=== PATIENT | female | born 1985 | race Caucasian/White ===

== ENCOUNTER 2017-08-02 21:54 | Inpatient (IN) | payer OTHER ==
[2017-08-02 22:12] VITALS: BMI 25.8
--- NOTE | 2017-08-02 22:35 | HP ---
COWS - Scale Resting Pulse: 0= [place] 80 or Below Sweatin=Flushed/Facial Moisture Restless Observation: 1= Difficult to Sit Still Pupil Size: 1= Pupils >than Normal Bone or Joint Aches: 2= Severe Diffuse Aches Runny Nose/ Eye Tearin= Runny Nose/Eyes GI Upset > 30mins: 5=Frequent Vomit/Diarrhea (diarrhea x 5, denies vomiting) Tremor Observation: 2= Slight Tremor Visible Yawning Observation: 1= 1-2x During Session Anxiety or Irritability: 2=Irritable/Anxious Goose Flesh Skin: 0=Smooth Skin COWS Score: 18 CIWA Score - CIWA Score Nausea/Vomitin-No Nausea/No Vomiting Muscle Tremors: 4-Moderate,w/Arms Extend Anxiety: 4-Mod. Anxious/Guarded Agitation: 3 Paroxysmal Sweats: 3 Orientation: 0-Oriented Tacttile Disturbances: 0-None Auditory Disturbances: 0-None Visual Disturbances: 0-None Headache: 3-Moderate CIWA-Ar Total Score: 17 Admission ROS S - HPI Chief Complaint: Alcohol and heroin withdrawal symptoms Allergies/Adverse Reactions: Allergies Allergy/AdvReac Type Severity Reaction Status Date / Time No Known Allergies Allergy Verified 08/02/17 22:20 History of Present Illness: 31 years old female with a long history of alcohol, heroin and marijuana dependence is admitted to detox. Patient denies previous detox and insignificant period of sobriety. Patient has medical history of HPV, anxiety disorder and depression. She reports inflammation, redness and hives to right hand and left thigh from bed bug bites. She was sent from [facility] where she presented with complaint of suicidal thoughts. Patient denies suicidal ideation at this time but states that she feels very anxious and depressed. Patient states ''My goal is to get sober and find a way to manage my anxiety without illicit drugs." Exam Limitations: No Limitations - Ebola screening Have you traveled outside of the country in the last 21 days: No (N) Have you had contact with anyone from an Ebola affected area: No Have you been sick,other than usual withdrawal symptoms: No Do you have a fever: No - Review of Systems Constitutional: Chills, Diaphoresis, Loss of Appetite, Malaise, Night Sweats, Changes in sleep EENT: reports: Other (use prescription glasses) Respiratory: reports: No Symptoms reported Cardiac: reports: No Symptoms Reported GI: reports: Diarrhea ( x 5), Poor Appetite, Poor Fluid Intake : reports: No Symptoms Reported Musculoskeletal: reports: No Symptoms Reported Integumentary: reports: Dryness, Erythema (left arm, right thigh), Flushing Neuro: reports: Headache, Tingling, Tremors Endocrine: reports: Flushing Hematology: reports: Easy Bruising Psychiatric: reports: Orientated x3, Agitated, Anxious, Depressed Other Systems: Reviewed and Negative Patient History - Patient Medical History Hx Anemia: No Hx Asthma: No Hx Chronic Obstructive Pulmonary Disease (COPD): No Hx Cancer: No Hx Cardiac Disorders: No Hx Congestive Heart Failure: No Hx Hypertension: No Hx Hypercholesterolemia: No HX Cerebrovascular Accident: No Hx Seizures: No Hx Diabetes: No Hx Gastrointestinal Disorders: No Hx Liver Disease: No Hx Genitourinary Disorders: No Hx Sexually Transmitted Disorders: Yes (HPV) Hx Renal Disease (ESRD): No Hx Thyroid Disease: No Hx Human Immunodeficiency Virus (HIV): No (Negative 2015) Hx Hepatitis C: No (Negative 2016) Hx Depression: Yes Hx Suicide Attempt: No (Denies suicidal ideation at this time) Hx Bipolar Disorder: No Hx Schizophrenia: No Other Medical History: Bed bug bites - Patient Surgical History Past Surgical History: Yes Hx Neurologic Surgery: No Hx Cataract Extraction: No Hx Cardiac Surgery: No Hx Lung Surgery: No Hx Breast Surgery: No Hx Breast Biopsy: No Hx Abdominal Surgery: Yes (Gastric sleeve) Hx Appendectomy: No Hx Cholecystectomy: No Hx Genitourinary Surgery: No Hx Section: No Hx Orthopedic Surgery: Yes (Left femur surgery) Hx Hysterectomy: No Other Surgical History: Gallbladder removal Anesthesia Reaction: No - PPD History Previous Implant?: No PPD to be Administered?: Yes - Reproductive History Patient is a Female of Child Bearing Age (11 -55 yrs old): Yes LMP comment: On control Patient : No - Smoking Cessation Smoking history: Current every day smoker Have you smoked in the past 12 months: Yes Aproximately how many cigarettes per day: 10 Hx Chewing Tobacco Use: No Initiated information on smoking cessation: Yes 'Breaking Loose' booklet given: 08/02/17 - Substance & Tx. History Hx Alcohol Use: Yes (Beer) Hx Substance Use: Yes (Heroin, Marijuana, Cocaine) Substance Use Type: Alcohol, Cocaine, Heroin, Marijuana Hx Substance Use Treatment: No (Denies) - Substances Abused Alcohol Route: Oral Frequency: Daily Amount used: BEER- 1 SIX PACK- 24oz Age of first use: 16 Date of Last Use: 08/02/17 Heroin Route: Inhalation Frequency: Daily Amount used: 5 bags Age of first use: 25 Date of Last Use: 07/30/17 Cocaine Route: Inhalation Frequency: 3-6 times per week Amount used: 1 gram Age of first use: 18 Date of Last Use: 07/30/17 Marijuana/Hashish Route: Inhalation Frequency: Daily Amount used: 1 gram Age of first use: 16 Date of Last Use: 08/02/17 Family Disease History - Family Disease History Family Disease History: Other: Father (Cirrhosis of liver, alcoholism- ) Admission Physical Exam [facility] - Vital Signs Vital Signs: Vital Signs - 24 hr 08/02/17 22:09 Temperature 98.1 F Pulse Rate 79 Respiratory 18 Rate Blood Pressure 115/76 - Physical General Appearance: Yes: Moderate Distress, Tremorous, Irritable, Sweating, Anxious HEENTM: Yes: EOMI, DANY Respiratory: Yes: Lungs Clear, Normal Breath Sounds, No Respiratory Distress Neck: Yes: Supple Breast: Yes: Breast Exam Deferred Cardiology: Yes: Regular Rhythm, Regular Rate, S1, S2 Abdominal: Yes: Normal Bowel Sounds, Soft Genitourinary: Yes: Within Normal Limits Back: Yes: Other (tatoo (2) to the back) Musculoskeletal: Yes: Within Normal Limits Extremities: Yes: Tremors, Erythema (right hand and left thigh) Integumentary: Yes: Dry, Hives, Other (tatoo to bilateral hand and leg) Lymphatic: Yes: Within Normal Limits - Diagnostic (1) Alcohol dependence with uncomplicated withdrawal Current Visit: Yes Status: Acute (2) Nicotine dependence Current Visit: Yes Status: Acute Qualifiers: Nicotine product type: cigarettes (3) Cocaine dependence, uncomplicated Current Visit: Yes Status: Acute (4) Cannabis dependence, uncomplicated Current Visit: Yes Status: Acute Cleared for Admission [facility] - Detox or Rehab [facility] Level of Care: Medically Managed Detox Regimen/Protocol: Methadone/Librium [facility] Breath Alcohol Content Breath Alcohol Content: 0 Urine Pregancy Test - Result Urine Test Results: Negative- NO Line Present Urine Drug Screen - Results Drug Screen Negative: No Urine Drug Screen Results: THC-Marijuana, TCA-Tricyclic Antidepress
[2017-08-02] MEDS ORDERED: MAG HYDROX/AL HYDROX/SIMETH 30 ML UNIT-DOSE CUP PO PRN (23:27)
[2017-08-02] MEDS ORDERED: MAGNESIUM HYDROX 2400MG/30ML ORAL SUSPENSION 30 ML CUP PO PRN (23:27)
[2017-08-02] MEDS ORDERED: ACETAMINOPHEN 325 MG TABLET (FP) PO PRN (23:27)
[2017-08-02] MEDS ORDERED: MENTHOL/PHENOL 1 EACH UD MM PRN (23:27)
[2017-08-02] MEDS ORDERED: LOPERAMIDE HCL 2 MG CAPSULE PO PRN (23:27)
[2017-08-02] MEDS ORDERED: IBUPROFEN 400 MG TABLET (FP) PO PRN (23:27)
[2017-08-02] MEDS ORDERED: MAGNESIUM CITRATE 300 ML BOTTLE PO PRN (23:27)
[2017-08-02] MEDS ORDERED: guaiFENesin/D-METHORPHAN HB 10 ML UNIT-DOSE CUPS PO PRN (23:27)
[2017-08-02] MEDS ORDERED: P-EPHED 60MG/TRIPROLIDI 2.5MG TABLET PO PRN (23:27)
[2017-08-02] MEDS: chlordiazePOXIDE HCL 25 MG CAPSULE PO SCH (23:56)
[2017-08-03] MEDS ORDERED: diphenhydrAMINE HCL 25 MG CAPSULE (FP) PO ONE ×2 (00:04→09:39)
[2017-08-03] MEDS ORDERED: HYDROCORTISONE 1% TOPICAL CREAM 30 GM TUBE TP PRN (00:06)
[2017-08-03] MEDS: hydrOXYzine PAMOATE 50 MG CAPSULE (FP) PO PRN ×2 (01:38→17:07)
[2017-08-03] MEDS: chlordiazePOXIDE HCL 25 MG CAPSULE PO SCH ×4 (05:11→22:48)
[2017-08-03] MEDS ORDERED: COLLOIDAL OATMEAL 1 BAR EACH TP PRN (09:25)
[2017-08-03 09:56] LABS: MCH 31.8 pg (25.7-33.7); MCHC 33.4 g/dl (32.0-36.0); MEAN CELL VOLUME 95.1 fl (80-96); MEAN PLT VOLUME 7.2 fl (7.5-11.1); PLATELET COUNT 406 K/MM3 (134-434); RDW 13.1 % (11.6-15.6); WHITE BLOOD COUNT 7.2 K/mm3 (4.0-10.0)
--- NOTE | 2017-08-03 10:25 | PN ---
[facility] CIWA - CIWA Score Nausea/Vomitin-Mild Nausea/No Vomiting Muscle Tremors: 4-Moderate,w/Arms Extend Anxiety: 3 Agitation: 3 Paroxysmal Sweats: 3 Orientation: 0-Oriented Tacttile Disturbances: 0-None Auditory Disturbances: 0-None Visual Disturbances: 0-None Headache: 1-Very Mild CIWA-Ar Total Score: 15 BHS COWS - Scale Resting Pulse: 1= [place] 81-100 Sweatin=Flushed/Facial Moisture Restless Observation: 1= Difficult to Sit Still Pupil Size: 0= Normal to Room Light Bone or Joint Aches: 2= Severe Diffuse Aches Runny Nose/ Eye Tearin= Runny Nose/Eyes GI Upset > 30mins: 0= None Tremor Observation of Outstretched Hands: 2= Slight Tremor Visible Yawning Observation: 2= >3x During Session Anxiety or Irritability: 2=Irritable/Anxious Goose Flesh Skin: 3=Piloerection COWS Score: 17 S Progress Note (SOAP) Subjective: shakes sweats interrupted sleep skin rash itch agitation chills Objective: 08/03/17 10:29 Vital Signs Temperature 98.2 F 08/03/17 10:23 Pulse Rate 94 H 08/03/17 10:23 Respiratory Rate 20 08/03/17 10:23 Blood Pressure 120/76 08/03/17 10:23 O2 Sat by Pulse Oximetry (%) Laboratory Tests 08/03/17 07:00 WBC 7.2 RBC 3.95 Hgb 12.6 Hct 37.6 MCV 95.1 MCH 31.8 MCHC 33.4 RDW 13.1 Plt Count 406 MPV 7.2 L rest of labs pending aaox3 ambulating no acute distress skin rash erupted noted to left arm and right leg; they appear as skin mosquito bites with a reaction. Assessment: 08/03/17 10:32 withdrawal sx Plan: continue detox increase fluids lidex cream qid benadryl 50mg x one aveeno soap
[2017-08-03 10:27] LABS: URINE APPEARANCE CLOUDY; URINE BILIRUBIN NEGATIVE (NEGATIVE); URINE BLOOD 2+ (NEGATIVE); URINE COLOR YELLOW; URINE GLUCOSE (UA) NEGATIVE (NEGATIVE); URINE KETONE NEGATIVE (NEGATIVE); URINE NITRITE NEGATIVE (NEGATIVE); URINE PROTEIN NEGATIVE (NEGATIVE); URINE UROBILINOGEN NEGATIVE mg/dL (0.2-1.0)
[2017-08-03] MEDS: FLUOCINONIDE 0.05% CREAM (15 GM TUBE) TP SCH ×5 (10:33→22:48)
[2017-08-03] MEDS: NICOTINE 14 MG/24 HOURS TOPICAL PATCH TD SCH (10:33)
[2017-08-03] MEDS: IBUPROFEN 600 MG TABLET (FP) PO PRN ×2 (10:35→22:48)
[2017-08-03] MEDS: PRENATAL VITAMINS W/ FOLIC ACID TABLET (FP) PO SCH (10:35)
[2017-08-03 10:39] LABS: ALBUMIN 3.3 g/dl (3.4-5.0); ALK PHOS 59 U/L (45-117); ANION GAP 8 (8-16); BILIRUBIN,TOTAL 0.8 mg/dL (0.2-1.0); CALCIUM 8.4 mg/dL (8.5-10.1); CO2 28 mmol/L (21-32); CREATININE 0.8 mg/dL (0.55-1.02); GLUCOSE,RANDOM 86 mg/dL (74-106); SGOT/AST 17 U/L (15-37); SGPT/ALT 23 U/L (12-78)
[2017-08-03 11:15] LABS: URINE BACTERIA MANY /hpf (NONE SEEN); URINE MUCUS FEW; URINE RBC 3; URINE WBC 50
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
[2017-08-03] MEDS: chlordiazePOXIDE HCL 25 MG CAPSULE PO PRN (13:24)
[2017-08-03] MEDS: NICOTINE POLACRILEX 2 MG GUM BC PRN ×3 (13:39→20:26)
[2017-08-03] MEDS ORDERED: diphenhydrAMINE HCL 25 MG CAPSULE (FP) PO PRN (15:13)
[2017-08-03] MEDS: DULoxetine HCL 60 MG CAPSULE.DR PO SCH (15:16)
[2017-08-03] MEDS ORDERED: ZOLPIDEM TARTRATE 5 MG TABLET PO PRN (17:12)
[2017-08-03 17:27] LABS: URINE LEUK ESTERASE TRACE (NEGATIVE)
[2017-08-03] MEDS: ZOLPIDEM TARTRATE 10 MG TABLET (PARK CARE ONLY) PO PRN (22:48)
[2017-08-03] MEDS: THIAMINE HCL 100 MG TABLET (FP) PO SCH (22:48)
[2017-08-04] MEDS: hydrOXYzine PAMOATE 50 MG CAPSULE (FP) PO PRN ×3 (04:14→20:00)
[2017-08-04] MEDS: chlordiazePOXIDE HCL 25 MG CAPSULE PO SCH ×3 (05:49→17:09)
[2017-08-04] MEDS: chlordiazePOXIDE HCL 25 MG CAPSULE PO PRN ×3 (07:35→20:01)
[2017-08-04] MEDS: IBUPROFEN 600 MG TABLET (FP) PO PRN ×3 (07:35→22:29)
[2017-08-04] MEDS: NICOTINE POLACRILEX 2 MG GUM BC PRN ×3 (07:36→14:36)
[2017-08-04] MEDS: DULoxetine HCL 60 MG CAPSULE.DR PO SCH (10:09)
[2017-08-04] MEDS: PRENATAL VITAMINS W/ FOLIC ACID TABLET (FP) PO SCH (10:09)
[2017-08-04] MEDS: FLUOCINONIDE 0.05% CREAM (15 GM TUBE) TP SCH ×5 (10:10→22:30)
[2017-08-04] MEDS: NICOTINE 14 MG/24 HOURS TOPICAL PATCH TD SCH (10:12)
--- NOTE | 2017-08-04 11:39 | PN ---
[facility] CIWA - CIWA Score Nausea/Vomitin-No Nausea/No Vomiting Muscle Tremors: 4-Moderate,w/Arms Extend Anxiety: 3 Agitation: 3 Paroxysmal Sweats: 3 Orientation: 0-Oriented Tacttile Disturbances: 0-None Auditory Disturbances: 0-None Visual Disturbances: 0-None Headache: 1-Very Mild CIWA-Ar Total Score: 14 BHS COWS - Scale Resting Pulse: 1= [place] 81-100 Sweatin=Flushed/Facial Moisture Restless Observation: 1= Difficult to Sit Still Pupil Size: 0= Normal to Room Light Bone or Joint Aches: 1= Mild Discomfort Runny Nose/ Eye Tearin= Nasal Congestion GI Upset > 30mins: 2= Nausea/Diarrhea Tremor Observation of Outstretched Hands: 2= Slight Tremor Visible Yawning Observation: 2= >3x During Session Anxiety or Irritability: 2=Irritable/Anxious Goose Flesh Skin: 0=Smooth Skin COWS Score: 14 S Progress Note (SOAP) Subjective: sweats mild shakes interrupted sleep agitation my rash is feeling better, less itching Objective: 08/04/17 11:38 Vital Signs Temperature 97.9 F 08/04/17 10:00 Pulse Rate 84 08/04/17 10:00 Respiratory Rate 18 08/04/17 10:00 Blood Pressure 118/75 08/04/17 10:00 O2 Sat by Pulse Oximetry (%) Laboratory Tests 08/03/17 08/03/17 08/03/17 07:00 07:00 07:00 WBC 7.2 RBC 3.95 Hgb 12.6 Hct 37.6 MCV 95.1 MCH 31.8 MCHC 33.4 RDW 13.1 Plt Count 406 MPV 7.2 L Sodium 138 Potassium 4.2 Chloride 102 Carbon Dioxide 28 Anion Gap 8 BUN 14 Creatinine 0.8 Creat Clearance w eGFR > 60 Random Glucose 86 Calcium 8.4 L Total Bilirubin 0.8 AST 17 ALT 23 Alkaline Phosphatase 59 Total Protein 7.0 Albumin 3.3 L Urine Color Urine Appearance Urine pH Ur Specific [place] Urine Protein Urine Glucose (UA) Urine Ketones Urine Blood Urine Nitrite Urine Bilirubin Urine Urobilinogen Ur Leukocyte Esterase Urine WBC (Auto) Urine RBC (Auto) Urine RBC Ur Epithelial Cells Urine Bacteria Urine Mucus RPR Titer Nonreactive 08/03/17 07:00 WBC RBC Hgb Hct MCV MCH MCHC RDW Plt Count MPV Sodium Potassium Chloride Carbon Dioxide Anion Gap BUN Creatinine Creat Clearance w eGFR Random Glucose Calcium Total Bilirubin AST ALT Alkaline Phosphatase Total Protein Albumin Urine Color Yellow Urine Appearance Cloudy Urine pH 5.0 Ur Specific [place] 1.024 Urine Protein Negative Urine Glucose (UA) Negative Urine Ketones Negative Urine Blood 2+ H Urine Nitrite Negative Urine Bilirubin Negative Urine Urobilinogen Negative Ur Leukocyte Esterase Trace H Urine WBC (Auto) 50 Urine RBC (Auto) 3 Urine RBC No Result Required. Ur Epithelial Cells Rare Urine Bacteria Many Urine Mucus Few RPR Titer aaox3 ambulating no acute distress Assessment: 08/04/17 11:41 withdrawal sx Plan: continue detox increase fluids
--- NOTE | 2017-08-04 12:13 | EKG ---
Test Reason : Blood Pressure : / mmHG Vent. Rate : 066 BPM Atrial Rate : 066 BPM P-R Int : 126 ms QRS Dur : 090 ms QT Int : 404 ms P-R-T Axes : 035 049 047 degrees QTc Int : 423 ms NORMAL SINUS RHYTHM NORMAL ECG NO PREVIOUS ECGS AVAILABLE Confirmed by NADYA ENRIQUEZ MD ([id number]) on 08/04/2017 12:13:04 PM Referred By: Confirmed By:NADYA ENRIQUEZ MD
--- NOTE | 2017-08-04 16:33 | PN ---
Psychiatric Progress Note Vital Signs: Vital Signs Period Temp Pulse Resp BP Sys/Enriquez Pulse Ox Last 24 Hr 97.5 F-99.3 F 62-90 16-18 111-121/67-77 Date of Session: 08/04/17 Chief Complaint:: " I feel anxious.I want to see the psychiatrist." HPI: Day 3 of detoxification treatment.Fine hospital course.Patient requested another session with psychiatrist because of recurrent anxiety. ROS: Unremarkable.Patient is ambulatory,cognitively intact and visible oin the unit.No evidence of distress. Current Medications: Active Medications Generic Name Dose Route Start Last Admin Trade Name Freq PRN Reason Stop Dose Admin Acetaminophen 650 mg 08/02/17 23:27 Tylenol - PO Q4H PRN FEVER OR PAIN Al Hydroxide/Mg Hydroxide 30 ml 08/02/17 23:27 Mylanta Oral Suspension - PO Q6H PRN DYSPEPSIA Chlordiazepoxide HCl 25 mg 08/03/17 23:00 08/04/17 10:09 Librium - PO 08/04/17 17:01 25 mg [id number] SILVIA Administration Chlordiazepoxide HCl 15 mg 08/04/17 23:00 Librium - PO 08/05/17 17:01 [id number] SILVIA Chlordiazepoxide HCl 25 mg 08/02/17 23:27 08/04/17 15:21 Librium - PO 08/05/17 23:26 25 mg Q4H PRN Administration WITHDRAWAL(CONT SUBST) Chlordiazepoxide HCl 10 mg 08/05/17 23:00 Librium - PO 08/06/17 17:01 [id number] SILVIA Colloidal Oatmeal 1 applic 08/03/17 09:25 08/03/17 09:45 Aveeno Soap - TP 1 applic DAILY PRN Administration HYGEINE Diphenhydramine HCl 25 mg 08/03/17 15:13 08/03/17 15:35 Benadryl - PO 25 mg Q6H PRN Administration FOR ITCHING Duloxetine HCl 60 mg 08/03/17 13:55 08/04/17 10:09 Cymbalta - PO 60 mg DAILY SILVIA Administration Eucalyptus/Menthol/Phenol/Sorbitol 1 each 08/02/17 23:27 Cepastat Lozenge - MM Q4H PRN SORE THROAT Fluocinonide 1 applic 08/03/17 09:30 08/04/17 15:16 Lidex 0.05% Cream - TP 1 applic QID SILVIA Administration Guaifenesin 10 ml 08/02/17 23:27 Robitussin Dm - PO Q6H PRN COUGH Hydroxyzine Pamoate 50 mg 08/02/17 23:27 08/04/17 14:36 Vistaril - PO 50 mg Q4H PRN Administration AGITATION Ibuprofen 600 mg 08/03/17 10:10 08/04/17 15:02 Motrin - PO 600 mg Q6H PRN Administration SEVERE PAIN Loperamide HCl 4 mg 08/02/17 23:27 Imodium - PO Q6H PRN DIARRHEA Magnesium Citrate 300 ml 08/02/17 23:27 Citroma - PO Q48H PRN CONSTIPATION Magnesium Hydroxide 30 ml 08/02/17 23:27 Milk Of Magnesia - PO DAILY PRN CONSTIPATION Nicotine 14 mg 08/03/17 10:00 08/04/17 10:12 Nicoderm Patch - TD 14 mg DAILY SILVIA Administration Nicotine Polacrilex 2 mg 08/02/17 23:27 08/04/17 14:36 Nicorette Gum - BC 2 mg Q2H PRN Administration NICOTINE REPLACEMENT RX Multivit/Folic Acid/Iron 1 tab 08/03/17 10:00 08/04/17 10:09 Vitamins (Sjr) - PO 1 tab DAILY SILVIA Administration Pseudoephedrine/Triprolidine 1 combo 08/02/17 23:27 Actifed - PO TID PRN NASAL CONGESTION Thiamine HCl 100 mg 08/03/17 22:00 08/03/17 22:48 Vitamin B1 - PO 100 mg HS SILVIA Administration Zolpidem Tartrate 10 mg 08/03/17 22:00 08/03/17 22:48 Ambien - PO 08/06/17 21:59 10 mg HS PRN Administration INSOMNIA Medication(s) Change(s): No clinical justification for change of medications.Patient needs firm redirections and reassurance.Ms Johnson reported to this sports book writer that she sought another meeting with psychiatrist because " other girls on the unit told me about the number of medications that they are getting,like seroquel,ambien and other things; so I wonder why I should not get the same for my anxiety."Patient is currently on librium detox protocol.She is pressuring staff for switch to another benzodiazepine.Appropriate medical information is provided to the patient and strict limits set.Session was witnessed by CHENCHO [place]. Current Side Effect: No Lab tests ordered: No Lab tests reviewed: Yes Provider note:: Met with patient in the presence of nurse Sandi.Patient is allowed space to ventilate her feelings and express frustration.NO clinical evidence of panic attacks.Ms Johnson is clearly engaged in the quest for additional medications (preferably benzodiazepines) through manipulative and infantile channels.Medications reviewed with patient.She is informed that her current condtion DOES NOT warrant any modification of the regimen.She is also encouraged to focus on her own issues and to ignore rumors/innuendos from peers.Patient appears to be receptive to teachings.Calmed down.Stable mental status. Total face to face time:: 25 Mental Status Exam - Mental Status Exam Alert and Oriented to: Time, Place, Person Cognitive Function: Good Patient Appearance: Well Groomed Mood: Nervous Affect: Labile Patient Behavior: Appropriate (during interview), Cooperative Speech Pattern: Clear, Appropriate Voice Loudness: Normal Thought Process: Intact, Goal Oriented Thought Disorder: Not Present Hallucinations: Denies Suicidal Ideation: Denies Homicidal Ideation: Denies Insight/Judgement: Poor Sleep: Fair Appetite: Good Muscle strength/Tone: Normal Gait/Station: Normal Psychiatric Treatment Plan - Problem List (1) Alcohol dependence with uncomplicated withdrawal Current Visit: Yes (2) Cannabis dependence, uncomplicated Current Visit: Yes (3) Cocaine dependence, uncomplicated Current Visit: Yes (4) Nicotine dependence Current Visit: Yes Qualifiers: Nicotine product type: cigarettes Substance use status: uncomplicated Qualified Code(s): F17.210 - Nicotine dependence, cigarettes, uncomplicated (5) Substance induced mood disorder Current Visit: Yes (6) Depressive disorder Current Visit: Yes Comment: Self-report.On medications.Sees a private psychiatrist in the community. (7) Personality disorder, unspecified Current Visit: Yes Comment: Suspected.
[2017-08-04] MEDS: ZOLPIDEM TARTRATE 10 MG TABLET (PARK CARE ONLY) PO PRN (22:29)
[2017-08-04] MEDS: THIAMINE HCL 100 MG TABLET (FP) PO SCH (22:29)
[2017-08-04] MEDS: chlordiazePOXIDE 5 MG CAPSULE PO SCH (22:31)
[2017-08-05] MEDS: chlordiazePOXIDE HCL 25 MG CAPSULE PO PRN ×3 (02:48→14:34)
[2017-08-05] MEDS: chlordiazePOXIDE 5 MG CAPSULE PO SCH ×2 (05:47→10:41)
[2017-08-05] MEDS: IBUPROFEN 600 MG TABLET (FP) PO PRN (05:48)
[2017-08-05] MEDS: hydrOXYzine PAMOATE 50 MG CAPSULE (FP) PO PRN (07:27)
[2017-08-05] MEDS: DULoxetine HCL 60 MG CAPSULE.DR PO SCH (10:41)
[2017-08-05] MEDS: PRENATAL VITAMINS W/ FOLIC ACID TABLET (FP) PO SCH (10:41)
[2017-08-05] MEDS: NICOTINE 14 MG/24 HOURS TOPICAL PATCH TD SCH (10:42)
[2017-08-05] MEDS: FLUOCINONIDE 0.05% CREAM (15 GM TUBE) TP SCH ×2 (10:43→14:36)
--- NOTE | 2017-08-05 11:24 | DS ---
[facility] Detox Discharge Summary Admission Date: 08/02/17 Discharge Date: 08/05/17 - History Present History: Alcohol Dependence, Cannabis Dependence, Cocaine Dependence Additional Comments: FOLLOW UP WITH [facility] Pertinent Past History: NICOTINE DEPENDENCE PERSONALITY DISORDER SUBSTANCE INDUED MOOD DISORDER DEPRESSIVE DISORDER - Physical Exam Results Vital Signs: Vital Signs Temperature 98.4 F 08/05/17 10:47 Pulse Rate 75 08/05/17 10:47 Respiratory Rate 16 08/05/17 10:47 Blood Pressure 129/81 08/05/17 10:47 O2 Sat by Pulse Oximetry (%) - Treatment Hospital Course: Detox Protocol Followed, Detoxed Safely, Responded well, Discharged Condition Good, Rehab Referral Accepted Patient has Accepted a Rehab Referral to: [facility] - Medication Discharge Medications: Ambulatory Orders Clonazepam [Klonopin -] 1.5 mg PO DAILY 08/02/17 Duloxetine HCl [Cymbalta -] 90 mg PO DAILY 08/02/17 - Diagnosis (1) Alcohol dependence with uncomplicated withdrawal Current Visit: Yes Status: Chronic (2) Personality disorder, unspecified Current Visit: Yes Status: Acute (3) Substance induced mood disorder Current Visit: Yes Status: Acute (4) Cannabis dependence, uncomplicated Current Visit: Yes Status: Chronic (5) Cocaine dependence, uncomplicated Current Visit: Yes Status: Chronic (6) Depressive disorder Current Visit: Yes Status: Chronic (7) Nicotine dependence Current Visit: Yes Status: Chronic Qualifiers: Nicotine product type: cigarettes Substance use status: uncomplicated Qualified Code(s): F17.210 - Nicotine dependence, cigarettes, uncomplicated - AMA Did Patient Leave Against Medical Advice: No
--- NOTE | 2017-08-05 11:25 | PN ---
S Progress Note Note: PATIENT IS STABLE TO BE DISCHARGED TO [facility] TODAY
[2017-08-05 13:50] VITALS: BP 110/65; PULSE 74; TEMP 98.1
[2017-08-05] MEDS ORDERED: chlordiazePOXIDE HCL 10 MG CAPSULE PO SCH (23:00)
== END 2017-08-05 14:37 | disposition other institution (70) | DRG 774 ==
LOC: YASAS 21:54 → Y6N 22:42
PROVIDERS: ADMIT Internal Medicine; ATTEND Internal Medicine
PROC: HZ2ZZZZ Detoxification Services for Substance Abuse Treatment (ICD-10-PCS; principal; 2017-08-02)
DX: F10.230 Alcohol dependence with withdrawal, uncomplicated (principal); F14.20 Cocaine dependence, uncomplicated; F12.20 Cannabis dependence, uncomplicated; F17.210 Nicotine dependence, cigarettes, uncomplicated; F19.24 Other psychoactive substance dependence with psychoactive substance-induced mood disorder; F60.9 Personality disorder, unspecified; F32.9 Major depressive disorder, single episode, unspecified; Z87.42 Personal history of other diseases of the female genital tract
CPT/HCPCS: 36415; 80053; 81003; 81015; 85027; 86593; 93005; 93010

== ENCOUNTER 2017-08-05 14:24 | Inpatient (IN) | payer OTHER ==
[2017-08-05] MEDS ORDERED: MAGNESIUM CITRATE 300 ML BOTTLE PO PRN (15:51)
[2017-08-05] MEDS ORDERED: MAGNESIUM HYDROX 2400MG/30ML ORAL SUSPENSION 30 ML CUP PO PRN (15:51)
[2017-08-05] MEDS ORDERED: P-EPHED 60MG/TRIPROLIDI 2.5MG TABLET PO PRN (15:51)
[2017-08-05] MEDS ORDERED: LOPERAMIDE HCL 2 MG CAPSULE PO PRN (15:51)
[2017-08-05] MEDS ORDERED: MENTHOL/PHENOL 1 EACH UD MM PRN (15:51)
[2017-08-05] MEDS ORDERED: guaiFENesin/D-METHORPHAN HB 10 ML UNIT-DOSE CUPS PO PRN (15:51)
[2017-08-05] MEDS ORDERED: MAG HYDROX/AL HYDROX/SIMETH 30 ML UNIT-DOSE CUP PO PRN (15:51)
[2017-08-05] MEDS ORDERED: COLLOIDAL OATMEAL 1 BAR EACH TP PRN (15:52)
--- NOTE | 2017-08-05 15:53 | HP ---
[facility] Rehab Assess/Revision - Admission History Admitted to Rehab from: [facility] Date of Admission to Rehab: 08/05/17 - Vital signs Vital Signs: Vital Signs Period Temp Pulse Resp BP Sys/Enriquez Pulse Ox Last 24 Hr 98.3 F 87 18 118/75 - Findings Detox History & Physical reviewed: Yes Concur with findings: Yes Inpatient Rehab Admission - Initial Determination Are CD services needed?: Yes Free of communicable disease: Yes Not in need of hospitalization: Yes - Rehab Admission Criteria Lacks judgement: Yes Patient is meeting Inpatient Rehab admission criteria:: Yes
[2017-08-05] MEDS: NICOTINE 14 MG/24 HOURS TOPICAL PATCH TD SCH (17:17)
[2017-08-05] MEDS: FLUOCINONIDE 0.05% TOP OINT (60 GM TUBE) TP SCH ×2 (17:18→22:12)
[2017-08-05] MEDS: hydrOXYzine PAMOATE 50 MG CAPSULE (FP) PO PRN ×2 (17:19→22:14)
[2017-08-05] MEDS: THIAMINE HCL 100 MG TABLET (FP) PO SCH (22:11)
[2017-08-05] MEDS: SUVOREXANT 10 MG TABLET PO SCH (22:12)
[2017-08-06] MEDS: hydrOXYzine PAMOATE 50 MG CAPSULE (FP) PO PRN ×5 (02:20→22:04)
[2017-08-06] MEDS: ACETAMINOPHEN 325 MG TABLET (FP) PO PRN (02:20)
[2017-08-06] MEDS: IBUPROFEN 400 MG TABLET (FP) PO PRN (07:04)
[2017-08-06] MEDS ORDERED: DULoxetine HCL 60 MG CAPSULE.DR PO SCH (10:00)
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
[2017-08-06 10:22] LABS: HIV 1 & 2 AB NEGATIVE; HIV 1 AGp24 NEGATIVE
[2017-08-06] MEDS: PRENATAL VITAMINS W/ FOLIC ACID TABLET (FP) PO SCH (10:58)
[2017-08-06] MEDS: NICOTINE 14 MG/24 HOURS TOPICAL PATCH TD SCH (11:04)
[2017-08-06] MEDS: FLUOCINONIDE 0.05% TOP OINT (60 GM TUBE) TP SCH ×2 (11:25→22:03)
[2017-08-06] MEDS: DULoxetine HCL 60 MG CAPSULE.DR PO SCH ×2 (11:50→22:02)
[2017-08-06] MEDS ORDERED: FLU VACCINE QUAD 60 MCG/0.5 ML (MDV 17-18) IM ONE (12:00)
[2017-08-06] MEDS: traZODone HCL 50 MG TABLET (FP) PO SCH (22:02)
[2017-08-06] MEDS: THIAMINE HCL 100 MG TABLET (FP) PO SCH (22:03)
[2017-08-06] MEDS: SUVOREXANT 10 MG TABLET PO SCH (22:03)
[2017-08-07] MEDS: hydrOXYzine PAMOATE 50 MG CAPSULE (FP) PO PRN ×3 (06:47→20:40)
[2017-08-07] MEDS: FLUOCINONIDE 0.05% TOP OINT (60 GM TUBE) TP SCH ×2 (09:49→21:55)
[2017-08-07] MEDS: DULoxetine HCL 60 MG CAPSULE.DR PO SCH ×2 (09:49→21:54)
[2017-08-07] MEDS: NICOTINE 14 MG/24 HOURS TOPICAL PATCH TD SCH (09:50)
[2017-08-07] MEDS: PRENATAL VITAMINS W/ FOLIC ACID TABLET (FP) PO SCH (09:50)
[2017-08-07] MEDS: NICOTINE POLACRILEX 2 MG GUM BUC PRN ×4 (12:40→21:56)
[2017-08-07] MEDS: IBUPROFEN 400 MG TABLET (FP) PO PRN ×2 (15:48→22:56)
[2017-08-07] MEDS: traZODone HCL 50 MG TABLET (FP) PO SCH (21:54)
[2017-08-07] MEDS: THIAMINE HCL 100 MG TABLET (FP) PO SCH (21:55)
[2017-08-07] MEDS: SUVOREXANT 10 MG TABLET PO SCH (21:55)
[2017-08-08] MEDS: IBUPROFEN 400 MG TABLET (FP) PO PRN (07:25)
[2017-08-08] MEDS: hydrOXYzine PAMOATE 50 MG CAPSULE (FP) PO PRN ×2 (07:25→15:45)
[2017-08-08] MEDS ORDERED: DULoxetine HCL 30 MG CAPSULE.DR (FP) PO ONE ×2 (08:38→19:00)
[2017-08-08] MEDS: DULoxetine HCL 60 MG CAPSULE.DR PO SCH ×2 (09:58→21:49)
[2017-08-08] MEDS: NICOTINE 14 MG/24 HOURS TOPICAL PATCH TD SCH (09:59)
[2017-08-08] MEDS: PRENATAL VITAMINS W/ FOLIC ACID TABLET (FP) PO SCH (09:59)
[2017-08-08] MEDS: FLUOCINONIDE 0.05% TOP OINT (60 GM TUBE) TP SCH ×2 (09:59→21:49)
[2017-08-08] MEDS: NICOTINE POLACRILEX 2 MG GUM BUC PRN ×3 (10:00→18:18)
[2017-08-08] MEDS ORDERED: PT OWN MED DRAWER 7, Y5N ONE (18:20)
[2017-08-08] MEDS: SUVOREXANT 10 MG TABLET PO SCH (21:48)
[2017-08-08] MEDS: traZODone HCL 50 MG TABLET (FP) PO SCH (21:48)
[2017-08-08] MEDS: THIAMINE HCL 100 MG TABLET (FP) PO SCH (21:49)
[2017-08-09] MEDS: hydrOXYzine PAMOATE 50 MG CAPSULE (FP) PO PRN ×4 (06:00→22:00)
[2017-08-09] MEDS: IBUPROFEN 400 MG TABLET (FP) PO PRN (06:01)
[2017-08-09] MEDS ORDERED: DULoxetine HCL 30 MG CAPSULE.DR (FP) PO ONE ×2 (08:47→20:22)
[2017-08-09] MEDS: FLUOCINONIDE 0.05% TOP OINT (60 GM TUBE) TP SCH ×2 (10:47→21:16)
[2017-08-09] MEDS: PRENATAL VITAMINS W/ FOLIC ACID TABLET (FP) PO SCH (10:47)
[2017-08-09] MEDS: NICOTINE 14 MG/24 HOURS TOPICAL PATCH TD SCH (10:47)
[2017-08-09] MEDS: DULoxetine HCL 60 MG CAPSULE.DR PO SCH ×2 (10:48→21:17)
[2017-08-09] MEDS: NICOTINE POLACRILEX 2 MG GUM BUC PRN ×2 (10:50→18:13)
[2017-08-09] MEDS: ACETAMINOPHEN 325 MG TABLET (FP) PO PRN (18:12)
[2017-08-09] MEDS: THIAMINE HCL 100 MG TABLET (FP) PO SCH (21:15)
[2017-08-09] MEDS: SUVOREXANT 10 MG TABLET PO SCH (21:15)
[2017-08-09] MEDS: traZODone HCL 50 MG TABLET (FP) PO SCH (21:15)
[2017-08-09] MEDS ORDERED: PT OWN MED DRAWER 7, Y5N ONE (21:17)
[2017-08-10] MEDS: hydrOXYzine PAMOATE 50 MG CAPSULE (FP) PO PRN ×4 (06:58→20:21)
[2017-08-10] MEDS: NICOTINE POLACRILEX 2 MG GUM BUC PRN (07:33)
[2017-08-10] MEDS ORDERED: DULoxetine HCL 30 MG CAPSULE.DR (FP) PO ONE (08:56)
[2017-08-10] MEDS: DULoxetine HCL 60 MG CAPSULE.DR PO SCH ×2 (10:27→21:46)
[2017-08-10] MEDS: FLUOCINONIDE 0.05% TOP OINT (60 GM TUBE) TP SCH ×2 (10:28→21:46)
[2017-08-10] MEDS: NICOTINE 14 MG/24 HOURS TOPICAL PATCH TD SCH (10:28)
[2017-08-10] MEDS: PRENATAL VITAMINS W/ FOLIC ACID TABLET (FP) PO SCH (10:28)
[2017-08-10] MEDS: NICOTINE 21 MG/24 HOURS TOPICAL PATCH TD SCH (11:00)
[2017-08-10] MEDS: NICOTINE POLACRILEX 4 MG GUM BUC PRN (20:22)
[2017-08-10] MEDS: traZODone HCL 50 MG TABLET (FP) PO SCH (21:46)
[2017-08-10] MEDS: THIAMINE HCL 100 MG TABLET (FP) PO SCH (21:46)
[2017-08-10] MEDS: SUVOREXANT 10 MG TABLET PO SCH (21:47)
[2017-08-11] MEDS: hydrOXYzine PAMOATE 50 MG CAPSULE (FP) PO PRN ×3 (05:08→15:59)
[2017-08-11] MEDS: NICOTINE POLACRILEX 4 MG GUM BUC PRN ×2 (07:41→13:31)
[2017-08-11] MEDS: DULoxetine HCL 60 MG CAPSULE.DR PO SCH ×2 (10:27→21:52)
[2017-08-11] MEDS: PRENATAL VITAMINS W/ FOLIC ACID TABLET (FP) PO SCH (10:28)
[2017-08-11] MEDS: NICOTINE 21 MG/24 HOURS TOPICAL PATCH TD SCH (10:28)
[2017-08-11] MEDS: FLUOCINONIDE 0.05% TOP OINT (60 GM TUBE) TP SCH (10:28)
[2017-08-11] MEDS: CLINDAMYCIN PHOSPHATE 1% TOPICAL GEL 30 GM TUBE TP SCH ×2 (16:00→21:53)
[2017-08-11] MEDS: traZODone HCL 50 MG TABLET (FP) PO SCH (21:52)
[2017-08-11] MEDS: SUVOREXANT 10 MG TABLET PO SCH (21:52)
[2017-08-11] MEDS: THIAMINE HCL 100 MG TABLET (FP) PO SCH (21:52)
[2017-08-12] MEDS: hydrOXYzine PAMOATE 50 MG CAPSULE (FP) PO PRN ×3 (06:14→17:42)
[2017-08-12] MEDS ORDERED: PT OWN MED DRAWER 7, Y5N ONE ×2 (08:27→21:38)
[2017-08-12] MEDS: DULoxetine HCL 60 MG CAPSULE.DR PO SCH ×2 (09:01→21:35)
[2017-08-12] MEDS: PRENATAL VITAMINS W/ FOLIC ACID TABLET (FP) PO SCH (09:01)
[2017-08-12] MEDS: NICOTINE 21 MG/24 HOURS TOPICAL PATCH TD SCH (09:02)
[2017-08-12] MEDS: NICOTINE POLACRILEX 4 MG GUM BUC PRN (09:02)
[2017-08-12] MEDS: CLINDAMYCIN PHOSPHATE 1% TOPICAL GEL 30 GM TUBE TP SCH ×2 (09:03→21:37)
[2017-08-12] MEDS: IBUPROFEN 400 MG TABLET (FP) PO PRN (17:42)
[2017-08-12] MEDS: THIAMINE HCL 100 MG TABLET (FP) PO SCH (21:35)
[2017-08-12] MEDS: traZODone HCL 50 MG TABLET (FP) PO SCH (21:35)
[2017-08-12] MEDS: SUVOREXANT 10 MG TABLET PO SCH (21:36)
[2017-08-13] MEDS: hydrOXYzine PAMOATE 50 MG CAPSULE (FP) PO PRN ×5 (02:30→23:11)
[2017-08-13] MEDS: ACETAMINOPHEN 325 MG TABLET (FP) PO PRN (02:31)
[2017-08-13] MEDS ORDERED: PT OWN MED DRAWER 7, Y5N ONE ×2 (09:05→15:54)
--- NOTE | 2017-08-13 10:04 | PN ---
Psychiatric Progress Note Vital Signs: Vital Signs Period Temp Pulse Resp BP Sys/Enriquez Pulse Ox Last 24 Hr 97.8 F 77 18-18 123/76 Date of Session: 08/13/17 Current Medications: Active Medications Generic Name Dose Route Start Last Admin Trade Name Freq PRN Reason Stop Dose Admin Acetaminophen 650 mg 08/05/17 15:51 08/13/17 02:31 Tylenol - PO 650 mg Q4H PRN Administration FEVER OR PAIN Al Hydroxide/Mg Hydroxide 30 ml 08/05/17 15:51 Mylanta Oral Suspension - PO Q6H PRN DYSPEPSIA Clindamycin Phosphate 1 applic 08/11/17 14:13 08/12/17 21:37 Cleocin 1% Gel - TP 1 applic BID SILVIA Administration Colloidal Oatmeal 1 applic 08/05/17 15:52 08/08/17 10:01 Aveeno Soap - TP 1 bar DAILY PRN Administration HYGEINE Duloxetine HCl 60 mg 08/06/17 11:45 08/12/17 21:35 Cymbalta - PO 60 mg BID SILVIA Administration Eucalyptus/Menthol/Phenol/Sorbitol 1 each 08/05/17 15:51 Cepastat Lozenge - MM Q4H PRN SORE THROAT Guaifenesin 10 ml 08/05/17 15:51 Robitussin Dm - PO Q6H PRN COUGH Hydroxyzine Pamoate 50 mg 08/05/17 15:51 08/13/17 08:30 Vistaril - PO 50 mg Q4H PRN Administration AGITATION Ibuprofen 400 mg 08/05/17 15:51 08/12/17 17:42 Motrin - PO 400 mg Q6H PRN Administration PAIN Loperamide HCl 4 mg 08/05/17 15:51 Imodium - PO Q6H PRN DIARRHEA Magnesium Citrate 300 ml 08/05/17 15:51 Citroma - PO Q48H PRN CONSTIPATION Magnesium Hydroxide 30 ml 08/05/17 15:51 Milk Of Magnesia - PO DAILY PRN CONSTIPATION Nicotine 21 mg 08/10/17 10:28 08/12/17 09:02 Nicoderm Patch - TD 21 mg DAILY SILVIA Administration Nicotine Polacrilex 4 mg 08/10/17 10:05 08/12/17 09:02 Nicorette Gum - BUC 4 mg Q2H PRN Administration NICOTINE REPLACEMENT RX Multivit/Folic Acid/Iron 1 tab 08/06/17 10:00 08/12/17 09:01 Vitamins (Sj[facility]) - PO 1 tab DAILY SILVIA Administration Pseudoephedrine/Triprolidine 1 combo 08/05/17 15:51 Actifed - PO TID PRN NASAL CONGESTION Thiamine HCl 100 mg 08/05/17 22:00 08/12/17 21:35 Vitamin B1 - PO 100 mg HS SILVIA Administration Trazodone HCl 50 mg 08/06/17 22:00 08/12/17 21:35 Desyrel - PO 50 mg HS SILVIA Administration Current Side Effect: No Lab tests ordered: No Lab tests reviewed: Yes Total face to face time:: 30 Psychiatric Treatment Plan - Problem List (1) Personality disorder, unspecified Current Visit: Yes Comment: Suspected. (2) Substance induced mood disorder Current Visit: Yes (3) Nicotine dependence Current Visit: Yes Qualifiers: (4) Cocaine dependence Current Visit: Yes (5) Alcohol dependence Current Visit: Yes (6) Cannabis dependence Current Visit: Yes
[2017-08-13] MEDS: PRENATAL VITAMINS W/ FOLIC ACID TABLET (FP) PO SCH (10:39)
[2017-08-13] MEDS: DULoxetine HCL 60 MG CAPSULE.DR PO SCH ×2 (10:39→21:09)
[2017-08-13] MEDS: NICOTINE 21 MG/24 HOURS TOPICAL PATCH TD SCH (10:40)
[2017-08-13] MEDS: NICOTINE POLACRILEX 4 MG GUM BUC PRN ×4 (10:40→21:11)
[2017-08-13] MEDS: CLINDAMYCIN PHOSPHATE 1% TOPICAL GEL 30 GM TUBE TP SCH (10:40)
[2017-08-13] MEDS: FLUOCINONIDE 0.05% CREAM (60 GM TUBE) TP SCH ×2 (16:00→21:09)
[2017-08-13] MEDS: IBUPROFEN 400 MG TABLET (FP) PO PRN (17:11)
[2017-08-13] MEDS: metroNIDAZOLE 0.75% TOPICAL GEL 45 GM TUBE TP SCH ×2 (18:23→23:11)
[2017-08-13] MEDS: THIAMINE HCL 100 MG TABLET (FP) PO SCH (21:09)
[2017-08-13] MEDS: SUVOREXANT 10 MG TABLET PO SCH (23:11)
[2017-08-13] MEDS: traZODone HCL 50 MG TABLET (FP) PO SCH (23:11)
[2017-08-14] MEDS: hydrOXYzine PAMOATE 50 MG CAPSULE (FP) PO PRN ×4 (04:54→21:43)
[2017-08-14] MEDS: DULoxetine HCL 60 MG CAPSULE.DR PO SCH ×2 (09:29→21:43)
[2017-08-14] MEDS: PRENATAL VITAMINS W/ FOLIC ACID TABLET (FP) PO SCH (09:30)
[2017-08-14] MEDS: NICOTINE 21 MG/24 HOURS TOPICAL PATCH TD SCH (09:30)
[2017-08-14] MEDS: FLUOCINONIDE 0.05% CREAM (60 GM TUBE) TP SCH ×2 (09:31→21:44)
[2017-08-14] MEDS: metroNIDAZOLE 0.75% TOPICAL GEL 45 GM TUBE TP SCH ×2 (09:31→21:44)
[2017-08-14] MEDS: NICOTINE POLACRILEX 4 MG GUM BUC PRN ×3 (09:34→21:43)
[2017-08-14] MEDS: IBUPROFEN 400 MG TABLET (FP) PO PRN (12:03)
[2017-08-14] MEDS ORDERED: PT OWN MED DRAWER 7, Y5N ONE (15:51)
[2017-08-14] MEDS: THIAMINE HCL 100 MG TABLET (FP) PO SCH (21:43)
[2017-08-14] MEDS: SUVOREXANT 10 MG TABLET PO SCH (22:55)
[2017-08-14] MEDS: traZODone HCL 50 MG TABLET (FP) PO SCH (22:56)
[2017-08-15] MEDS: NICOTINE POLACRILEX 4 MG GUM BUC PRN ×5 (07:47→21:47)
[2017-08-15] MEDS: metroNIDAZOLE 0.75% TOPICAL GEL 45 GM TUBE TP SCH ×2 (10:19→21:44)
[2017-08-15] MEDS: FLUOCINONIDE 0.05% CREAM (60 GM TUBE) TP SCH ×2 (10:19→21:45)
[2017-08-15] MEDS: NICOTINE 21 MG/24 HOURS TOPICAL PATCH TD SCH (10:20)
[2017-08-15] MEDS: PRENATAL VITAMINS W/ FOLIC ACID TABLET (FP) PO SCH (10:21)
[2017-08-15] MEDS: DULoxetine HCL 60 MG CAPSULE.DR PO SCH ×2 (10:21→21:44)
[2017-08-15] MEDS: hydrOXYzine PAMOATE 50 MG CAPSULE (FP) PO PRN ×3 (10:21→20:33)
[2017-08-15] MEDS: IBUPROFEN 400 MG TABLET (FP) PO PRN (14:54)
[2017-08-15] MEDS: THIAMINE HCL 100 MG TABLET (FP) PO SCH (21:45)
[2017-08-15] MEDS: SUVOREXANT 10 MG TABLET PO SCH (22:59)
[2017-08-15] MEDS: traZODone HCL 50 MG TABLET (FP) PO SCH (22:59)
[2017-08-16] MEDS: hydrOXYzine PAMOATE 50 MG CAPSULE (FP) PO PRN ×4 (03:54→21:58)
[2017-08-16] MEDS: NICOTINE POLACRILEX 4 MG GUM BUC PRN ×4 (07:37→15:46)
[2017-08-16] MEDS ORDERED: PT OWN MED DRAWER 7, Y5N ONE ×3 (09:14→22:01)
[2017-08-16] MEDS: DULoxetine HCL 60 MG CAPSULE.DR PO SCH ×2 (10:24→21:58)
[2017-08-16] MEDS: PRENATAL VITAMINS W/ FOLIC ACID TABLET (FP) PO SCH (10:24)
[2017-08-16] MEDS: NICOTINE 21 MG/24 HOURS TOPICAL PATCH TD SCH (10:25)
[2017-08-16] MEDS: FLUOCINONIDE 0.05% CREAM (60 GM TUBE) TP SCH ×2 (10:25→21:58)
[2017-08-16] MEDS: metroNIDAZOLE 0.75% TOPICAL GEL 45 GM TUBE TP SCH ×2 (10:26→22:00)
[2017-08-16] MEDS: ACETAMINOPHEN 325 MG TABLET (FP) PO PRN (13:29)
[2017-08-16] MEDS: SUVOREXANT 10 MG TABLET PO SCH (21:57)
[2017-08-16] MEDS: THIAMINE HCL 100 MG TABLET (FP) PO SCH (21:58)
[2017-08-16] MEDS: traZODone HCL 100 MG TABLET (FP) PO SCH (22:00)
[2017-08-17] MEDS: hydrOXYzine PAMOATE 50 MG CAPSULE (FP) PO PRN ×4 (03:31→20:30)
[2017-08-17] MEDS: IBUPROFEN 400 MG TABLET (FP) PO PRN (08:41)
[2017-08-17] MEDS: NICOTINE POLACRILEX 4 MG GUM BUC PRN ×4 (08:41→22:01)
[2017-08-17] MEDS ORDERED: PT OWN MED DRAWER 7, Y5N ONE ×3 (09:03→22:03)
[2017-08-17] MEDS: DULoxetine HCL 60 MG CAPSULE.DR PO SCH ×2 (10:38→22:00)
[2017-08-17] MEDS: NICOTINE 21 MG/24 HOURS TOPICAL PATCH TD SCH (10:38)
[2017-08-17] MEDS: PRENATAL VITAMINS W/ FOLIC ACID TABLET (FP) PO SCH (10:38)
[2017-08-17] MEDS: metroNIDAZOLE 0.75% TOPICAL GEL 45 GM TUBE TP SCH ×2 (10:39→22:02)
[2017-08-17] MEDS: FLUOCINONIDE 0.05% CREAM (60 GM TUBE) TP SCH ×2 (10:39→22:01)
[2017-08-17] MEDS: traZODone HCL 100 MG TABLET (FP) PO SCH (22:00)
[2017-08-17] MEDS: THIAMINE HCL 100 MG TABLET (FP) PO SCH (22:00)
[2017-08-17] MEDS: SUVOREXANT 10 MG TABLET PO SCH (22:00)
[2017-08-18] MEDS: hydrOXYzine PAMOATE 50 MG CAPSULE (FP) PO PRN ×3 (06:40→15:29)
[2017-08-18] MEDS: NICOTINE POLACRILEX 4 MG GUM BUC PRN ×3 (08:57→15:30)
[2017-08-18] MEDS: DULoxetine HCL 60 MG CAPSULE.DR PO SCH ×2 (10:24→21:57)
[2017-08-18] MEDS: PRENATAL VITAMINS W/ FOLIC ACID TABLET (FP) PO SCH (10:24)
[2017-08-18] MEDS: NICOTINE 21 MG/24 HOURS TOPICAL PATCH TD SCH (10:24)
[2017-08-18] MEDS: FLUOCINONIDE 0.05% CREAM (60 GM TUBE) TP SCH ×2 (10:25→21:58)
[2017-08-18] MEDS: metroNIDAZOLE 0.75% TOPICAL GEL 45 GM TUBE TP SCH ×2 (10:25→21:58)
[2017-08-18] MEDS: THIAMINE HCL 100 MG TABLET (FP) PO SCH (21:55)
[2017-08-18] MEDS: SUVOREXANT 10 MG TABLET PO SCH (21:56)
[2017-08-18] MEDS: traZODone HCL 100 MG TABLET (FP) PO SCH (21:58)
[2017-08-19] MEDS: hydrOXYzine PAMOATE 50 MG CAPSULE (FP) PO PRN ×3 (06:48→15:16)
[2017-08-19] MEDS: PRENATAL VITAMINS W/ FOLIC ACID TABLET (FP) PO SCH (10:35)
[2017-08-19] MEDS: NICOTINE 21 MG/24 HOURS TOPICAL PATCH TD SCH (10:35)
[2017-08-19] MEDS: metroNIDAZOLE 0.75% TOPICAL GEL 45 GM TUBE TP SCH ×2 (10:35→22:07)
[2017-08-19] MEDS: FLUOCINONIDE 0.05% CREAM (60 GM TUBE) TP SCH ×2 (10:35→22:07)
[2017-08-19] MEDS: DULoxetine HCL 60 MG CAPSULE.DR PO SCH ×2 (10:35→22:03)
[2017-08-19] MEDS ORDERED: BACITRACIN/POLYMYXIN B SULFATE 15 GM TUBE TP SCH (14:15)
[2017-08-19] MEDS: NICOTINE POLACRILEX 4 MG GUM BUC PRN ×2 (15:16→18:28)
[2017-08-19] MEDS: LIDOCAINE 5% TOPICAL PATCH TP SCH (15:16)
[2017-08-19] MEDS: BACITRACIN 0.9 GM PACKET TP SCH ×2 (15:16→22:02)
[2017-08-19] MEDS: THIAMINE HCL 100 MG TABLET (FP) PO SCH (22:03)
[2017-08-19] MEDS: traZODone HCL 100 MG TABLET (FP) PO SCH (22:03)
[2017-08-19] MEDS: SUVOREXANT 10 MG TABLET PO SCH (22:03)
[2017-08-19] MEDS: LIDOCAINE PATCH REMOVAL MC SCH (22:04)
[2017-08-19] MEDS ORDERED: PT OWN MED DRAWER 7, Y5N ONE (22:07)
[2017-08-20] MEDS: DULoxetine HCL 60 MG CAPSULE.DR PO SCH ×2 (09:00→21:56)
[2017-08-20] MEDS: PRENATAL VITAMINS W/ FOLIC ACID TABLET (FP) PO SCH (09:00)
[2017-08-20] MEDS: hydrOXYzine PAMOATE 50 MG CAPSULE (FP) PO PRN ×3 (09:00→21:56)
[2017-08-20] MEDS: metroNIDAZOLE 0.75% TOPICAL GEL 45 GM TUBE TP SCH ×2 (09:01→21:58)
[2017-08-20] MEDS: NICOTINE 21 MG/24 HOURS TOPICAL PATCH TD SCH (09:01)
[2017-08-20] MEDS: BACITRACIN 0.9 GM PACKET TP SCH ×2 (09:01→21:55)
[2017-08-20] MEDS: LIDOCAINE 5% TOPICAL PATCH TP SCH (09:01)
[2017-08-20] MEDS ORDERED: PT OWN MED DRAWER 7, Y5N ONE ×2 (10:37→21:05)
[2017-08-20] MEDS: FLUOCINONIDE 0.05% CREAM (60 GM TUBE) TP SCH ×2 (10:41→21:58)
[2017-08-20] MEDS: CYCLOBENZAPRINE HCL 5 MG TABLET PO PRN (16:50)
[2017-08-20] MEDS: NICOTINE POLACRILEX 4 MG GUM BUC PRN (16:52)
[2017-08-20] MEDS: SUVOREXANT 10 MG TABLET PO SCH (21:55)
[2017-08-20] MEDS: THIAMINE HCL 100 MG TABLET (FP) PO SCH (21:55)
[2017-08-20] MEDS: LIDOCAINE PATCH REMOVAL MC SCH (21:56)
[2017-08-20] MEDS: traZODone HCL 100 MG TABLET (FP) PO SCH (21:56)
[2017-08-21] MEDS: CYCLOBENZAPRINE HCL 5 MG TABLET PO PRN ×3 (08:32→21:52)
[2017-08-21] MEDS: hydrOXYzine PAMOATE 50 MG CAPSULE (FP) PO PRN ×2 (08:32→15:08)
[2017-08-21] MEDS ORDERED: PT OWN MED DRAWER 7, Y5N ONE ×2 (08:51→21:51)
[2017-08-21] MEDS: FLUOCINONIDE 0.05% CREAM (60 GM TUBE) TP SCH ×2 (10:12→21:53)
[2017-08-21] MEDS: BACITRACIN 0.9 GM PACKET TP SCH ×2 (10:12→21:51)
[2017-08-21] MEDS: LIDOCAINE 5% TOPICAL PATCH TP SCH (10:12)
[2017-08-21] MEDS: DULoxetine HCL 60 MG CAPSULE.DR PO SCH ×2 (10:12→21:52)
[2017-08-21] MEDS: NICOTINE 21 MG/24 HOURS TOPICAL PATCH TD SCH (10:13)
[2017-08-21] MEDS: metroNIDAZOLE 0.75% TOPICAL GEL 45 GM TUBE TP SCH ×2 (10:13→21:52)
[2017-08-21] MEDS: PRENATAL VITAMINS W/ FOLIC ACID TABLET (FP) PO SCH (10:14)
[2017-08-21] MEDS: NICOTINE POLACRILEX 4 MG GUM BUC PRN ×3 (10:15→18:13)
[2017-08-21] MEDS: SUVOREXANT 10 MG TABLET PO SCH (21:50)
[2017-08-21] MEDS: THIAMINE HCL 100 MG TABLET (FP) PO SCH (21:51)
[2017-08-21] MEDS: traZODone HCL 100 MG TABLET (FP) PO SCH (21:52)
[2017-08-21] MEDS: LIDOCAINE PATCH REMOVAL MC SCH (21:52)
[2017-08-22] MEDS ORDERED: PT OWN MED DRAWER 7, Y5N ONE (08:34)
[2017-08-22] MEDS: BACITRACIN 0.9 GM PACKET TP SCH ×2 (09:57→21:45)
[2017-08-22] MEDS: DULoxetine HCL 60 MG CAPSULE.DR PO SCH ×2 (09:57→21:46)
[2017-08-22] MEDS: FLUOCINONIDE 0.05% CREAM (60 GM TUBE) TP SCH ×2 (09:58→21:47)
[2017-08-22] MEDS: LIDOCAINE 5% TOPICAL PATCH TP SCH (09:58)
[2017-08-22] MEDS: NICOTINE 21 MG/24 HOURS TOPICAL PATCH TD SCH (09:59)
[2017-08-22] MEDS: PRENATAL VITAMINS W/ FOLIC ACID TABLET (FP) PO SCH (09:59)
[2017-08-22] MEDS: metroNIDAZOLE 0.75% TOPICAL GEL 45 GM TUBE TP SCH ×2 (09:59→21:46)
[2017-08-22] MEDS: hydrOXYzine PAMOATE 50 MG CAPSULE (FP) PO PRN ×2 (09:59→16:52)
[2017-08-22] MEDS: NICOTINE POLACRILEX 4 MG GUM BUC PRN ×2 (10:00→16:52)
[2017-08-22] MEDS: CYCLOBENZAPRINE HCL 5 MG TABLET PO PRN (10:00)
[2017-08-22] MEDS: CYCLOBENZAPRINE HCL 10 MG TABLET (FP) PO PRN (18:43)
[2017-08-22] MEDS: SUVOREXANT 10 MG TABLET PO SCH (21:45)
[2017-08-22] MEDS: traZODone HCL 100 MG TABLET (FP) PO SCH (21:46)
[2017-08-22] MEDS: THIAMINE HCL 100 MG TABLET (FP) PO SCH (21:46)
[2017-08-22] MEDS: LIDOCAINE PATCH REMOVAL MC SCH (21:46)
[2017-08-23] MEDS: CYCLOBENZAPRINE HCL 10 MG TABLET (FP) PO PRN (06:46)
[2017-08-23] MEDS: hydrOXYzine PAMOATE 50 MG CAPSULE (FP) PO PRN (06:46)
[2017-08-23 07:02] VITALS: BP 129/72; PULSE 94; TEMP 98
--- NOTE | 2017-08-23 10:23 | PN ---
Psychiatric Progress Note Vital Signs: Vital Signs Period Temp Pulse Resp BP Sys/Enriquez Pulse Ox Last 24 Hr 98 F 94 18-18 129/72 Date of Session: 08/23/17 Chief Complaint:: Discharge visit HPI: Patient addressed alcohol,Cocaine and Cannabis dependence comiorbid with Substance induced mood disorder,Personality disorder NOS. ROS: unremarkable Current Side Effect: No Lab tests ordered: No Lab tests reviewed: Yes Provider note:: Patient completed this program today.She has met her treatment goals and will continue to address her issues on outpatient basis at [facility] term treatment [facility]. patient continues to find that current medications:Cymbalta 60 mg po bid and Trazodone 100 mg po hs help to cope with depressed mood,insomnia,anxiety,mood instability.Scripts for 30 days provided. Psychotherapy provided focusing on relapse prevention. Patient is stable for discharge today. Total face to face time:: 30 Mental Status Exam - Mental Status Exam Alert and Oriented to: Time, Place, Person Cognitive Function: Grossly Intact Patient Appearance: Well Groomed Mood: Hopeful, Euthymic Affect: Appropriate, Mood Congruent Patient Behavior: Cooperative Speech Pattern: Clear Voice Loudness: Normal Thought Process: Goal Oriented Thought Disorder: Not Present Hallucinations: Denies Suicidal Ideation: Denies Homicidal Ideation: Denies Insight/Judgement: Fair Sleep: Fair Appetite: Good Muscle strength/Tone: Normal Gait/Station: Normal Psychiatric Treatment Plan - Problem List (1) Personality disorder, unspecified Comment: Suspected. (3) Nicotine dependence Qualifiers:
== END 2017-08-23 07:35 | disposition home or self-care (01) | DRG 772 ==
LOC: YASAS 14:24 → Y3E 14:25
PROVIDERS: ADMIT Psychiatry & Neurology Psychiatry; ATTEND Psychiatry & Neurology Psychiatry
PROC: HZ42ZZZ Group Counseling for Substance Abuse Treatment, Cognitive-Behavioral (ICD-10-PCS; principal; 2017-08-05)
DX: F10.20 Alcohol dependence, uncomplicated (principal); F14.20 Cocaine dependence, uncomplicated; F12.20 Cannabis dependence, uncomplicated; F17.210 Nicotine dependence, cigarettes, uncomplicated; F60.9 Personality disorder, unspecified; F19.24 Other psychoactive substance dependence with psychoactive substance-induced mood disorder
CPT/HCPCS: 36415; 87389; 90688